=== PATIENT | male | born 1995 ===

== ENCOUNTER 2019-10-05 22:18 | Emergency (ER) | payer SELFPAY ==
[~2019-10-05] VITALS: Ht 170.2 cm; Wt 59.0 kg
[2019-10-05] MEDS ORDERED: PENVK500 PO (23:10)
== END 2019-10-05 23:22 | disposition home or self-care (01) ==
LOC: ER 22:18
DX: K04.7 Periapical abscess without sinus (principal); F17.200 Nicotine dependence, unspecified, uncomplicated
CPT/HCPCS: 96372; 99282-25; J0696

== ENCOUNTER 2019-10-07 13:54 | Inpatient (IN) | payer SELFPAY ==
[~2019-10-07] VITALS: Ht 170.2 cm; Wt 57.6 kg
[~2019-10-07 13:54] MED LIST: PENVK500 PO
[2019-10-07 14:56] LABS: BASOPHILS ABSOLUTE AUTO 0.03 K/mm3 (0.00-0.23); BASOPHILS PERCENT AUTO 0 % (0-2); EOSINOPHILS ABSOLUTE AUTO 0.11 K/mm3 (0.00-0.68); EOSINOPHILS PERCENT AUTO 1 % (0-6); Hematocrit 46.8 % (37.0-53.0); Hemoglobin 15.3 g/dL (13.5-17.5); IMMATURE GRAN ABSOLUTE AUTO 0.06 K/mm3 (0.00-0.10); IMMATURE GRAN PERCENT AUTO 0 % (0-1); LYMPHOCYTES ABSOLUTE AUTO 2.96 K/mm3 (0.84-5.20); LYMPHOCYTES PERCENT AUTO 22 % (21-46); MONOCYTES ABSOLUTE AUTO 1.04 K/mm3 (0.16-1.47); MONOCYTES PERCENT AUTO 8 % (4-13); Mean Corpuscular HGB 27.9 pg (26.0-34.0); Mean Corpuscular HGB Conc 32.7 g/dL (31.5-36.5); Mean Corpuscular Volume 85 fL (80-100); Mean Platelet Volume 10.4 fL (9.1-12.4); NEUTROPHILS ABSOLUTE AUTO 9.53 K/mm3 (1.96-9.15); NEUTROPHILS PERCENT AUTO 69 % (41-73); Platelet Count 374 K/mm3 (150-400); RDW Coefficient Variation 13.2 % (11.7-14.2); RDW Standard Deviation 41.1 fL (35.1-46.3); Red Blood Cell Count 5.48 M/mm3 (4.30-5.90); White Blood Cell Count 13.73 K/mm3 (4.00-11.30)
[2019-10-07 15:19] LABS: Alanine Aminotransfer (ALT/SGP 94 U/L (12-78); Albumin/Globulin Ratio 0.9 (0.8-1.8); Alk Phos 114 U/L (50-136); Anion Gap 7 mmol/L (6-16); Aspartate Aminotrans (AST/SGOT 39 U/L (12-37); Bilirubin, Total 1.8 mg/dL (0.1-1.0); Blood Urea Nitrogen 15 mg/dL (8-24); Bun/Creatinine Ratio 20.2 (12.0-20.0); CO2, Blood 28 mmol/L (21-32); Calcium, Blood 9.2 mg/dL (8.5-10.1); Chloride, Blood 100 mmol/L (98-108); Creatinine, Blood 0.74 mg/dL (0.60-1.20); Globulin, Blood 4.7 g/dL (2.2-4.0); Glomerular Filtration Rate >60 (60-); Glucose, Blood 90 mg/dL (70-99); Potassium, Blood 3.4 mmol/L (3.5-5.5); Sodium, Blood 135 mmol/L (136-145); Total Protein, Blood 8.7 g/dL (6.4-8.2)
--- NOTE | 2019-10-07 19:59 | NUR ---
new pt from er, assessments completed, medications given as perscribed, pain medication given, call light in reach and explained, rm air, lr infusing, homeless
--- NOTE | 2019-10-07 20:51 | NUR ---
PHYSICIAN COMMUNICATION ALERTED THE WING MAILER MACHINE OPERATOR PHYSICIAN, DEREK COHN, THAT THE PATIENT HAD A CRITICAL LACTIC ACID LEVEL OF 2.4. MENTIONED THAT HIS VITALS WERE STABLE AND THAT THE PATIENT WAS AFEBRILE. THIS NURSE ALSO REPORTED THAT THE PATIENT FELT LIKE THERE WAS DRAINING COMING FROM THE ABSCESS INTO HIS MOUTH AND THAT THIS NURSE TOLD THE PATIENT NOT TO SWALLOW, AND HAD HIM SPIT IT INTO A SPECIMIN CUP. THIS NURSE REPORTED THAT IT LOOKED LIKE RED SALIVA AND NO PURULENT DRAINAGE WAS NOTICED. DEREK SAID THERE WAS NO NEED TO CULTURE THE DRAINAGE AT THIS TIME AND THAT SHE WAS ORDERING CHLORHEXIDINE MOUTHWASH FOR THE PATIENT.
[2019-10-07 20:57] LABS: U Amphetamine Screen DETECTED; U Barbituate Screen Not Detected; U Benzodiazapine Screen Not Detected; U Cannabinoids Screen DETECTED; U Cocaine Screen Not Detected; U Methadone Screen Not Detected; U Methamphetamine Screen DETECTED; U Opiates Screen Not Detected; U Phencyclidine Screen Not Detected
[2019-10-07 20:58] LABS: U Buprenorphine Screen Not Detected; U Oxycodone Screen Not Detected; U Propoxyphene Screen Not Detected
[2019-10-08 04:37] LABS: BASOPHILS ABSOLUTE AUTO 0.03 K/mm3 (0.00-0.23); BASOPHILS PERCENT AUTO 0 % (0-2); EOSINOPHILS ABSOLUTE AUTO 0.19 K/mm3 (0.00-0.68); EOSINOPHILS PERCENT AUTO 2 % (0-6); Hematocrit 38.4 % (37.0-53.0); Hemoglobin 12.2 g/dL (13.5-17.5); IMMATURE GRAN ABSOLUTE AUTO 0.03 K/mm3 (0.00-0.10); IMMATURE GRAN PERCENT AUTO 0 % (0-1); LYMPHOCYTES ABSOLUTE AUTO 2.11 K/mm3 (0.84-5.20); LYMPHOCYTES PERCENT AUTO 26 % (21-46); MONOCYTES ABSOLUTE AUTO 0.66 K/mm3 (0.16-1.47); MONOCYTES PERCENT AUTO 8 % (4-13); Mean Corpuscular HGB 27.4 pg (26.0-34.0); Mean Corpuscular HGB Conc 31.8 g/dL (31.5-36.5); Mean Corpuscular Volume 86 fL (80-100); Mean Platelet Volume 10.8 fL (9.1-12.4); NEUTROPHILS ABSOLUTE AUTO 5.17 K/mm3 (1.96-9.15); NEUTROPHILS PERCENT AUTO 63 % (41-73); Platelet Count 287 K/mm3 (150-400); RDW Coefficient Variation 13.3 % (11.7-14.2); RDW Standard Deviation 42.2 fL (35.1-46.3); Red Blood Cell Count 4.45 M/mm3 (4.30-5.90); White Blood Cell Count 8.19 K/mm3 (4.00-11.30)
[2019-10-08 04:56] LABS: Anion Gap 4 mmol/L (6-16); Blood Urea Nitrogen 9 mg/dL (8-24); Bun/Creatinine Ratio 12.3 (12.0-20.0); CO2, Blood 29 mmol/L (21-32); Calcium, Blood 8.2 mg/dL (8.5-10.1); Chloride, Blood 106 mmol/L (98-108); Creatinine, Blood 0.73 mg/dL (0.60-1.20); Glomerular Filtration Rate >60 (60-); Glucose, Blood 88 mg/dL (70-99); Potassium, Blood 3.9 mmol/L (3.5-5.5); Sodium, Blood 139 mmol/L (136-145)
--- NOTE | 2019-10-08 07:12 | NUR ---
SHIFT SUMMARY PATIENT ALERT AND ORIENTED. URINE SAMPLE OBTAINED AND SENT TO LAB. PATIENT DRINKING LARGE AMOUNTS OF CLEAR FLUIDS. IV PATENT AND INFUSING WITH NORMAL SALINE + K AT 100 ML/HR. ENT CALLED INTO JOSE MANUEL AT THE ANSWERING SERVICE FOR DR NEGRETE. BED IN LOWEST POSITION WITH WHEELS LOCKED. CALL LIGHT WITHIN REACH. REPORT GIVEN TO ONCOMING RN.
[2019-10-08] MEDS ORDERED: ACET325 PO ×2 (12:01)
[2019-10-08] MEDS ORDERED: PERIDEX15 ML MM ×2 (12:03)
[2019-10-08] MEDS ORDERED: VISBIOME 112.51 EACH PO ×2 (12:05)
[2019-10-08] MEDS ORDERED: AMOCLA500 PO ×2 (12:06)
--- NOTE | 2019-10-08 14:26 | NUR ---
Reviewed stay, medication, discharge instruction, plans post hospital, living situation, dr's instructions and expectations, pt was eager to leave to retrive belongings that were stashed downtown and make appointment to have tooth removed, information acknowleged by pt, iv removed, reminded to get abx and absess taken care of or to contact the hospital for assistance
== END 2019-10-08 13:20 | disposition home or self-care (01) | DRG 159 ==
LOC: ER 13:54 → MEDS 18:05
PROVIDERS: Nurse Practitioner; ADMIT Internal Medicine
DX: M27.2 Inflammatory conditions of jaws (principal); K04.7 Periapical abscess without sinus; F19.10 Other psychoactive substance abuse, uncomplicated; F17.210 Nicotine dependence, cigarettes, uncomplicated; Z59.0 Homelessness
CPT/HCPCS: 36415; 70487; 80048; 80053; 83605; 85025; 96365-59; 96366; 96367-59; 99285-25; J0295; J1885; J3480; J7030; Q9967

== ENCOUNTER 2022-09-30 04:12 | Emergency (ER) | payer OTHER ==
[~2022-09-30] VITALS: Ht 172.7 cm; Wt 59.0 kg
[~2022-09-30 04:12] MED LIST changes: +ACET325 PO; +AMOCLA500 PO; +PERIDEX15 ML MM; +VISBIOME 112.51 EACH PO
[2022-09-30 04:30] VITALS: BP 129/100
== END 2022-09-30 05:13 | disposition home or self-care (01) ==
LOC: ER 04:12
DX: M79.674 Pain in right toe(s) (principal); M79.675 Pain in left toe(s); F17.210 Nicotine dependence, cigarettes, uncomplicated
CPT/HCPCS: 99283